=== PATIENT | female | born 1945 | race Two or more races ===

== ENCOUNTER 2024-05-29 02:09 | Inpatient (IN) | payer MEDICARE, MEDICAID ==
[2024-05-29] VITALS (23 sets, daily range): BP systolic 100–142; BP diastolic 46–66; PULSE 62–86; RESP 17–36; TEMP 96.4–97.9; O2SAT 96–100
[~2024-05-29] VITALS: Ht 162.6 cm; Wt 75.2 kg
[2024-05-29] MEDS: AMIODARONE BOLUS KIT 100 ML IV ONE ×2 (02:30→03:38)
[2024-05-29] MEDS: MIDAZOLAM DRIP 50 mg/50mL 50 ML IV SCH (02:30)
[2024-05-29] MEDS: AMIODARONE 450mg/250ml AE 250 ML IV ONE (02:34)
[2024-05-29] MEDS: AMIODARONE 450mg/250ml AE 250 ML IV SCH ×2 (02:39→08:30)
[2024-05-29] MEDS: NOREPINEPHRINE 8 MG/250ML KIT 250 ML IV ONE (02:44)
[2024-05-29] MEDS: NOREPINEPHRINE 8 MG/250ML KIT 250 ML IV SCH (02:45)
[2024-05-29] MEDS: EPINEPHrine HCL 250 ML IV SCH (02:50)
[2024-05-29 02:56] LABS: Lactic Acid w/Reflex 8.6 mmol/L (0.4-2.0)
[2024-05-29] MEDS: fentaNYL Drip 2500mCg/250mlNS 250 ML IV SCH (03:10)
[2024-05-29 03:18] LABS: Alanine Aminotransferase 31 U/L (7-40); Albumin 2.8 g/dL (3.2-4.8); Alkaline Phosphatase 93 U/L (46-116); Anion Gap 14 (5-15); Aspartate Aminotransferase 39 U/L (13-40); BUN/Creatinine Ratio 19.2 (10.0-20.0); Blood Urea Nitrogen 41 mg/dL (9-23); Calcium 8.5 mg/dL (8.7-10.4); Carbon Dioxide 16 mmol/L (20-30); Chloride 104 mmol/L (98-107); Glucose 219 mg/dL (74-106); Magnesium 1.9 mg/dL (1.6-2.6); Potassium 4.8 mmol/L (3.5-5.1); Sodium 134 mmol/L (136-145)
[2024-05-29 03:19] LABS: Bilirubin, Total 0.2 mg/dL (0.2-1.0); Total Protein 5.1 g/dL (5.7-8.2)
[2024-05-29 03:32] LABS: Basophils # (auto) 0.1 10 ^3/uL (0-0.2); Basophils % (auto) 0.6 % (0.0-2.0); Eosinophils # (auto) 0.3 10 ^3/uL (0-0.8); Eosinophils % (auto) 2.9 % (0.0-7.0); Hemoglobin 9.3 g/dL (12.2-16.2); Lymphocytes # (auto) 3.9 10 ^3/uL (0.4-5.4); Lymphocytes % (auto) 38.8 % (10.0-50.0); Mean Corpuscular Hemoglobin 29.1 pg (28.0-32.0); Mean Corpuscular Hgb Conc. 31.9 g/dL (32.0-36.0); Mean Corpuscular Volume 91.3 fL (80.0-100.0); Monocytes # (auto) 0.4 10 ^3/uL (0-1.3); Monocytes % (auto) 3.8 % (0.0-12.0); Neutrophils # (auto) 5.5 10 ^3/uL (1.6-8.6); Neutrophils % (auto) 53.9 % (37.0-80.0); Nucleated Red Blood Cells % 0.1 %; Red Blood Cells 3.18 10^6/uL (4.0-5.20); Red Cell Distribution Width 14.7 % (11.8-14.3); White Blood Cell 10.1 10^3/uL (4.4-10.8)
[2024-05-29 03:34] LABS: INR 1.16 (0.9-1.15); Partial Thromboplastin Time 36.6 SEC (24.5-34.5); Prothrombin Time 12.2 sec (9.3-11.8)
[2024-05-29] MEDS: MIDAZOLAM DRIP 50 mg/50mL 50 ML IV ONE (03:38)
[2024-05-29] MEDS: EPINEPHrine HCL 250 ML IV ONE (03:39)
[2024-05-29] MEDS: SODIUM BICARB 8.4% 50Meq/50ml SYR INJ ONE (03:39)
[2024-05-29] MEDS: fentaNYL Drip 2500mCg/250mlNS 250 ML IV ONE (03:39)
[2024-05-29 04:13] LABS: Base Excess -10.4 mmol/L (-2.0-2.0)
[2024-05-29] MEDS: cefTRIAXone 1GM/50ML D5W 50 ML IV ONE (04:37)
[2024-05-29] MEDS: AZITHROMYCIN 500MG/ 250ML 250 ML IV ONE (04:38)
[2024-05-29 04:45] LABS: Urine Amorphous Crystal FEW /hpf (None Seen); Urine Bacteria FEW /hpf (None Seen); Urine Blood 3+ /uL (Negative); Urine Clarity Clear (Clear); Urine Color Light-Yellow (Yellow); Urine Protein, UAD 2+ (Negative); Urine Specific Gravity 1.008 (1.001-1.035); Urine Urobilinogen Normal (Negative); Urine WBC 4 /hpf (0 - 5)
[2024-05-29] MEDS: PROPOFOL 100 ML IV ONE (07:22)
[2024-05-29] MEDS: PROPOFOL 100 ML IV SCH (07:30)
[2024-05-29 09:47] LABS: Base Excess -7.6 mmol/L (-2.0-2.0)
[2024-05-29] MEDS ORDERED: DEXTROSE (50%) 50ML SYRG IV PRN (10:45)
[2024-05-29] MEDS: CEFEPIME 2GM/50ML 50 ML IV SCH (10:45)
[2024-05-29] MEDS ORDERED: ONDANSETRON HCL 4 MG/2 ML VIAL IV PRN (10:45)
[2024-05-29] MEDS ORDERED: NITROGLYCERIN 0.4 MG SL TAB SL PRN (10:45)
[2024-05-29] MEDS ORDERED: VANCOMYCIN PER PHARMACY 0 MG IV SCH (10:45)
[2024-05-29] MEDS ORDERED: MORPHINE SULFATE INJ 2 MG/ml SYRG IV PRN (10:45)
[2024-05-29] MEDS: ENOXAPARIN SOD 30 MG/0.3 ML SYRINGE SC SCH (11:00)
[2024-05-29 11:25] LABS: Basophils # (auto) 0 10 ^3/uL (0-0.2); Basophils % (auto) 0.2 % (0.0-2.0); Eosinophils # (auto) 0.1 10 ^3/uL (0-0.8); Eosinophils % (auto) 2.5 % (0.0-7.0); Hematocrit 29.6 % (36.0-46.0); Hemoglobin 9.8 g/dL (12.2-16.2); Lymphocytes # (auto) 0.4 10 ^3/uL (0.4-5.4); Lymphocytes % (auto) 7.2 % (10.0-50.0); Mean Corpuscular Hemoglobin 29.1 pg (28.0-32.0); Mean Corpuscular Hgb Conc. 33.2 g/dL (32.0-36.0); Mean Corpuscular Volume 87.6 fL (80.0-100.0); Monocytes # (auto) 0.2 10 ^3/uL (0-1.3); Neutrophils # (auto) 4.5 10 ^3/uL (1.6-8.6); Neutrophils % (auto) 86.1 % (37.0-80.0); Red Blood Cells 3.38 10^6/uL (4.0-5.20); Red Cell Distribution Width 14.8 % (11.8-14.3); White Blood Cell 5.2 10^3/uL (4.4-10.8)
[2024-05-29] MEDS: InsuLIN REG 1unit/0.01ml Soln (100units/ml) SC SCH (12:00)
[2024-05-29] MEDS: ACCU-CHEK COMFORT CURVE STRIP VI SCH (12:01)
[2024-05-29 12:13] LABS: Alanine Aminotransferase 72 U/L (7-40); Albumin 2.6 g/dL (3.2-4.8); Alkaline Phosphatase 153 U/L (46-116); Anion Gap 7 (5-15); Aspartate Aminotransferase 91 U/L (13-40); BUN/Creatinine Ratio 18.7 (10.0-20.0); Blood Urea Nitrogen 41 mg/dL (9-23); Calcium 7.9 mg/dL (8.7-10.4); Carbon Dioxide 21 mmol/L (20-30); Chloride 108 mmol/L (98-107); Glucose 106 mg/dL (74-106); Potassium 3.8 mmol/L (3.5-5.1); Sodium 136 mmol/L (136-145)
[2024-05-29 12:14] LABS: Bilirubin, Total 0.2 mg/dL (0.2-1.0); Total Protein 4.8 g/dL (5.7-8.2)
[2024-05-29] MEDS ORDERED: SODIUM BICARB 8.4% 50Meq/50ml SYR INJ IV ONE (12:22)
[2024-05-29] MEDS ORDERED: EPINEPHrine HCL 1 MG/10 ML SYRG IV ONE (12:23)
[2024-05-29] MEDS: VANCOMYCIN 750mg/150ml 150 ML IV ONE (12:30)
[2024-05-29] MEDS: DOPamine 1600MCG/ML D5W 250 ML IV SCH (16:00)
[2024-05-29 16:40] LABS: Magnesium 1.6 mg/dL (1.6-2.6)
[2024-05-29 16:42] LABS: Phosphorus 5.3 mg/dL (2.4-5.1)
[2024-05-29] MEDS: HEPARIN DRIP/D5W 100UNITS/ML 250 ML IV SCH (17:15)
[2024-05-29] MEDS: ASPirin 325 MG TAB PO ONE (17:15)
[2024-05-29] MEDS: HEPARIN SODIUM (PORCINE) 5000 UNITS/ML 1ML VIAL IV ONE (18:56)
[2024-05-29] MEDS: CLOPIDOGREL BISULFATE 75 MG TAB PO ONE (18:57)
[2024-05-29] MEDS: DOBUTamine 1000MCG/ML 250 ML IV SCH (18:57)
[2024-05-29] MEDS: AMIODARONE HCL 200 MG TAB PO ONE (18:58)
[2024-05-29] MEDS: AMIODARONE HCL 200 MG TAB PO SCH (23:35)
[2024-05-30] VITALS (107 sets, daily range): BP systolic 89–149; BP diastolic 34–61; PULSE 22–117; RESP 17–22; TEMP 93.9–99; O2SAT 97–100
[2024-05-30 00:55] LABS: INR 1.41 (0.9-1.15); Prothrombin Time 14.6 sec (9.3-11.8)
[2024-05-30 01:02] LABS: Partial Thromboplastin Time > 139.0 SEC (24.5-34.5)
[2024-05-30] MEDS ORDERED: TRAM-626 PO (01:32)
[2024-05-30] MEDS ORDERED: BUDE1AER6 IN (01:32)
[2024-05-30] MEDS ORDERED: CLON0.2T PO (01:32)
[2024-05-30] MEDS ORDERED: SERT50TA PO (01:32)
[2024-05-30] MEDS ORDERED: CARV25TA55 PO (01:32)
[2024-05-30] MEDS ORDERED: SACU1TAB4 PO (01:32)
[2024-05-30 04:26] LABS: Basophils # (auto) 0 10 ^3/uL (0-0.2); Basophils % (auto) 0.3 % (0.0-2.0); Eosinophils # (auto) 0 10 ^3/uL (0-0.8); Eosinophils % (auto) 0.2 % (0.0-7.0); Hematocrit 28.6 % (36.0-46.0); Hemoglobin 9.5 g/dL (12.2-16.2); Lymphocytes # (auto) 0.7 10 ^3/uL (0.4-5.4); Lymphocytes % (auto) 5.1 % (10.0-50.0); Mean Corpuscular Hemoglobin 28.9 pg (28.0-32.0); Mean Corpuscular Hgb Conc. 33.2 g/dL (32.0-36.0); Mean Corpuscular Volume 87.2 fL (80.0-100.0); Monocytes # (auto) 0.7 10 ^3/uL (0-1.3); Monocytes % (auto) 5.1 % (0.0-12.0); Neutrophils # (auto) 12.9 10 ^3/uL (1.6-8.6); Neutrophils % (auto) 89.3 % (37.0-80.0); Red Blood Cells 3.28 10^6/uL (4.0-5.20); Red Cell Distribution Width 14.9 % (11.8-14.3); White Blood Cell 14.5 10^3/uL (4.4-10.8)
[2024-05-30 07:17] LABS: Base Excess -6.8 mmol/L (-2.0-2.0)
[2024-05-30 09:20] LABS: INR 1.29 (0.9-1.15); Partial Thromboplastin Time 64.9 SEC (24.5-34.5); Prothrombin Time 13.4 sec (9.3-11.8)
[2024-05-30 09:23] LABS: Alanine Aminotransferase 54 U/L (7-40); Albumin 2.7 g/dL (3.2-4.8); Alkaline Phosphatase 126 U/L (46-116); Anion Gap 11 (5-15); Aspartate Aminotransferase 73 U/L (13-40); BUN/Creatinine Ratio 20.6 (10.0-20.0); Bilirubin, Total 0.2 mg/dL (0.2-1.0); Blood Urea Nitrogen 50 mg/dL (9-23); Calcium 7.8 mg/dL (8.7-10.4); Carbon Dioxide 18 mmol/L (20-30); Chloride 106 mmol/L (98-107); Glucose 95 mg/dL (74-106); Potassium 4.5 mmol/L (3.5-5.1); Sodium 135 mmol/L (136-145)
[2024-05-30] MEDS: ASPirin 81 mg TAB PO SCH (09:51)
[2024-05-30] MEDS: CLOPIDOGREL BISULFATE 75 MG TAB PO SCH (09:51)
[2024-05-30] MEDS: VANCOMYCIN 1GM/200ML 200 ML IV ONE (11:58)
[2024-05-30] MEDS: VASOPRESSIN 20 UNITS in SODIUM CHL 0.9% 99 ML IV SCH (14:30)
[2024-05-30 15:09] LABS: Basophils # (auto) 0 10 ^3/uL (0-0.2); Basophils % (auto) 0.1 % (0.0-2.0); Eosinophils # (auto) 0 10 ^3/uL (0-0.8); Eosinophils % (auto) 0.2 % (0.0-7.0); Hematocrit 26.6 % (36.0-46.0); Hemoglobin 8.7 g/dL (12.2-16.2); Lymphocytes # (auto) 0.8 10 ^3/uL (0.4-5.4); Mean Corpuscular Hemoglobin 28.5 pg (28.0-32.0); Mean Corpuscular Hgb Conc. 32.9 g/dL (32.0-36.0); Mean Corpuscular Volume 86.8 fL (80.0-100.0); Monocytes # (auto) 0.8 10 ^3/uL (0-1.3); Monocytes % (auto) 4.7 % (0.0-12.0); Neutrophils # (auto) 14.4 10 ^3/uL (1.6-8.6); Nucleated Red Blood Cells % 0.1 %; Red Blood Cells 3.06 10^6/uL (4.0-5.20); Red Cell Distribution Width 14.9 % (11.8-14.3)
[2024-05-30 15:26] LABS: Creatinine, Urine 58.76 mg/dL (30.0-125.0)
[2024-05-30 15:29] LABS: Alanine Aminotransferase 46 U/L (7-40); Albumin 2.5 g/dL (3.2-4.8); Alkaline Phosphatase 119 U/L (46-116); Anion Gap 10 (5-15); Aspartate Aminotransferase 67 U/L (13-40); BUN/Creatinine Ratio 20.6 (10.0-20.0); Bilirubin, Total 0.2 mg/dL (0.2-1.0); Blood Urea Nitrogen 50 mg/dL (9-23); Calcium 7.3 mg/dL (8.7-10.4); Carbon Dioxide 17 mmol/L (20-30); Chloride 107 mmol/L (98-107); Glucose 98 mg/dL (74-106); Potassium 4.6 mmol/L (3.5-5.1); Sodium 134 mmol/L (136-145); Total Protein 4.6 g/dL (5.7-8.2)
[2024-05-30 15:40] LABS: INR 1.23 (0.9-1.15); Partial Thromboplastin Time 48.1 SEC (24.5-34.5); Prothrombin Time 12.8 sec (9.3-11.8)
[2024-05-30] MEDS: PANTOPRAZOLE 40 MG/10 ML VIAL INJ IV SCH (17:30)
[2024-05-31] VITALS (105 sets, daily range): BP systolic 85–148; BP diastolic 40–74; PULSE 71–134; RESP 19–32; TEMP 96.4–99.3; O2SAT 95–100
[2024-05-31 04:16] LABS: Basophils # (auto) 0 10 ^3/uL (0-0.2); Eosinophils # (auto) 0 10 ^3/uL (0-0.8); Hemoglobin 8.1 g/dL (12.2-16.2); Lymphocytes # (auto) 0.6 10 ^3/uL (0.4-5.4); Monocytes # (auto) 0.6 10 ^3/uL (0-1.3); Monocytes % (auto) 4.8 % (0.0-12.0); White Blood Cell 13.3 10^3/uL (4.4-10.8)
[2024-05-31 04:23] LABS: Basophils % (auto) 0.1 % (0.0-2.0); Hematocrit 24.3 % (36.0-46.0); Lymphocytes % (auto) 4.9 % (10.0-50.0); Mean Corpuscular Hemoglobin 29.1 pg (28.0-32.0); Mean Corpuscular Hgb Conc. 33.5 g/dL (32.0-36.0); Mean Corpuscular Volume 86.7 fL (80.0-100.0); Neutrophils % (auto) 90.2 % (37.0-80.0); Nucleated Red Blood Cells % 0.1 %; Red Cell Distribution Width 15.4 % (11.8-14.3)
[2024-05-31 04:28] LABS: Alanine Aminotransferase 37 U/L (7-40); Albumin 2.4 g/dL (3.2-4.8); Alkaline Phosphatase 113 U/L (46-116); Anion Gap 11 (5-15); Aspartate Aminotransferase 67 U/L (13-40); BUN/Creatinine Ratio 20.5 (10.0-20.0); Blood Urea Nitrogen 56 mg/dL (9-23); Calcium 7.5 mg/dL (8.7-10.4); Carbon Dioxide 17 mmol/L (20-30); Chloride 106 mmol/L (98-107); Glucose 95 mg/dL (74-106); Magnesium 1.6 mg/dL (1.6-2.6); Potassium 4.6 mmol/L (3.5-5.1); Sodium 134 mmol/L (136-145)
[2024-05-31 04:29] LABS: Bilirubin, Total 0.2 mg/dL (0.2-1.0); Total Protein 4.5 g/dL (5.7-8.2)
[2024-05-31 07:46] LABS: Base Excess -8.7 mmol/L (-2.0-2.0)
[2024-05-31] MEDS: BUMETANIDE 2.5mg/10ml (0.25 mg/ml) INJ IV SCH (11:49)
[2024-05-31] MEDS: MAGNESIUM SULFATE 1GM/100ML 100 ML IV ONE (12:15)
[2024-05-31] MEDS ORDERED: cefTRIAXone 1GM/50ML D5W 50 ML IV ONE (12:15)
[2024-05-31] MEDS: ALBUMIN 25% 50 ML IV SCH (13:32)
[2024-05-31] MEDS: AMIODARONE BOLUS KIT 100 ML IV ONE (21:36)
[2024-05-31] MEDS: AMIODARONE 450mg/250ml AE 250 ML IV SCH (22:18)
[2024-06-01] VITALS (97 sets, daily range): BP systolic 97–191; BP diastolic 45–78; PULSE 55–117; RESP 13–39; TEMP 96.3–99.5; O2SAT 94–100
[2024-06-01] MEDS: AMIODARONE 450mg/250ml AE 250 ML IV SCH (02:30)
[2024-06-01 04:06] LABS: Basophils # (auto) 0 10 ^3/uL (0-0.2); Basophils % (auto) 0.1 % (0.0-2.0); Eosinophils # (auto) 0 10 ^3/uL (0-0.8); Hematocrit 22.6 % (36.0-46.0); Hemoglobin 7.7 g/dL (12.2-16.2); Lymphocytes # (auto) 0.6 10 ^3/uL (0.4-5.4); Lymphocytes % (auto) 4.7 % (10.0-50.0); Mean Corpuscular Hemoglobin 29.5 pg (28.0-32.0); Mean Corpuscular Hgb Conc. 34.1 g/dL (32.0-36.0); Mean Corpuscular Volume 86.5 fL (80.0-100.0); Monocytes # (auto) 0.5 10 ^3/uL (0-1.3); Monocytes % (auto) 4.1 % (0.0-12.0); Neutrophils % (auto) 91.1 % (37.0-80.0); Red Blood Cells 2.61 10^6/uL (4.0-5.20); Red Cell Distribution Width 15.3 % (11.8-14.3); White Blood Cell 13.2 10^3/uL (4.4-10.8)
[2024-06-01 04:22] LABS: Alanine Aminotransferase 27 U/L (7-40); Albumin 2.7 g/dL (3.2-4.8); Alkaline Phosphatase 105 U/L (46-116); Anion Gap 11 (5-15); Aspartate Aminotransferase 75 U/L (13-40); BUN/Creatinine Ratio 20.5 (10.0-20.0); Bilirubin, Total 0.2 mg/dL (0.2-1.0); Blood Urea Nitrogen 65 mg/dL (9-23); Calcium 8.1 mg/dL (8.7-10.4); Carbon Dioxide 16 mmol/L (20-30); Chloride 106 mmol/L (98-107); Glucose 111 mg/dL (74-106); Magnesium 1.9 mg/dL (1.6-2.6); Potassium 4.2 mmol/L (3.5-5.1); Sodium 133 mmol/L (136-145); Total Protein 4.9 g/dL (5.7-8.2)
[2024-06-01 08:05] LABS: Base Excess -8.7 mmol/L (-2.0-2.0)
[2024-06-01] MEDS ORDERED: cefTRIAXone 1GM/50ML D5W 50 ML IV SCH (09:00)
[2024-06-01] MEDS: VANCOMYCIN 750mg/150ml 150 ML IV ONE (09:55)
[2024-06-01] MEDS: SODIUM BICARB 8.4% 50Meq/50ml SYR Vial IV ONE (14:27)
[2024-06-01] MEDS: ALBUMIN 25% 50 ML IV SCH (14:28)
[2024-06-01] MEDS: METOCLOPRAMIDE HCL 5MG/ml INJ 2ml VIAL IV SCH (14:29)
[2024-06-01] MEDS: AMIODARONE HCL 200 MG TAB PO ONE (14:29)
[2024-06-01] MEDS: SODIUM BICARB 50mEq/50ml Vial 150 ML in D5W 5% 1,000 ML IV ONE (15:05)
[2024-06-01] MEDS: PANTOPRAZOLE 40 MG/10 ML VIAL INJ IV SCH (21:59)
[2024-06-01] MEDS: AMIODARONE HCL 200 MG TAB PO SCH (22:01)
[2024-06-02] VITALS (107 sets, daily range): BP systolic 102–186; BP diastolic 44–75; PULSE 60–129; RESP 12–22; TEMP 92.7–99.3; O2SAT 91–99
[2024-06-02] MEDS: hydrALAZINE HCL 20 MG/ML VL IV PRN (00:27)
[2024-06-02] MEDS: Jevity 1.2 Cal/Fiber 1 Liter GT SCH (03:56)
[2024-06-02 04:04] LABS: Base Excess -4.5 mmol/L (-2.0-2.0)
[2024-06-02 04:21] LABS: Basophils # (auto) 0 10 ^3/uL (0-0.2); Basophils % (auto) 0.1 % (0.0-2.0); Eosinophils # (auto) 0 10 ^3/uL (0-0.8); Eosinophils % (auto) 0.6 % (0.0-7.0); Hemoglobin 9.8 g/dL (12.2-16.2); Lymphocytes # (auto) 0.6 10 ^3/uL (0.4-5.4); Lymphocytes % (auto) 7.9 % (10.0-50.0); Mean Corpuscular Hemoglobin 29.7 pg (28.0-32.0); Mean Corpuscular Hgb Conc. 33.8 g/dL (32.0-36.0); Mean Corpuscular Volume 87.8 fL (80.0-100.0); Monocytes # (auto) 0.6 10 ^3/uL (0-1.3); Monocytes % (auto) 7.6 % (0.0-12.0); Neutrophils # (auto) 6.8 10 ^3/uL (1.6-8.6); Neutrophils % (auto) 83.8 % (37.0-80.0); Nucleated Red Blood Cells % 0.1 %; Red Blood Cells 3.31 10^6/uL (4.0-5.20); Red Cell Distribution Width 15.5 % (11.8-14.3); White Blood Cell 8.2 10^3/uL (4.4-10.8)
[2024-06-02 04:40] LABS: Anion Gap 13 (5-15); Carbon Dioxide 15 mmol/L (20-30); Chloride 107 mmol/L (98-107); Potassium 3.4 mmol/L (3.5-5.1); Sodium 135 mmol/L (136-145)
[2024-06-02 04:41] LABS: Calcium 8.3 mg/dL (8.7-10.4)
[2024-06-02 04:46] LABS: BUN/Creatinine Ratio 20.6 (10.0-20.0); Blood Urea Nitrogen 65 mg/dL (9-23); Glucose 80 mg/dL (74-106)
[2024-06-02] MEDS: POTASSIUM CHL 20MEQ/100ML 100 ML IV ONE (09:25)
[2024-06-02 10:21] LABS: Triglycerides 205 mg/dL (< 150)
[2024-06-02 10:22] LABS: LDL Cholesterol 69 mg/dL (< 100)
[2024-06-02 10:23] LABS: Cholesterol 123 mg/dL (< 200); HDL Cholesterol 13 mg/dL (40-59)
[2024-06-02] MEDS: LIDOCAINE 1% (LOCAL ANESTH.) PF 5ml SDV ID ONE (16:15)
[2024-06-02] MEDS: FUROSEMIDE 40 MG/4 ML VIAL IV SCH (17:58)
[2024-06-02] MEDS: SODIUM CHLOR 0.9% PF (SALINE LOCK) 10ML VIAL/SYR IV SCH (21:33)
[2024-06-02] MEDS: AMIODARONE BOLUS KIT 100 ML IV ONE (23:24)
[2024-06-02] MEDS: AMIODARONE 450mg/250ml AE 250 ML IV SCH (23:35)
[2024-06-03] VITALS (109 sets, daily range): BP systolic 76–184; BP diastolic 28–112; PULSE 86–136; RESP 14–57; TEMP 97.3–99.3; O2SAT 93–100
[2024-06-03 03:57] LABS: Basophils # (auto) 0 10 ^3/uL (0-0.2); Basophils % (auto) 0.6 % (0.0-2.0); Chloride 106 mmol/L (98-107); Eosinophils # (auto) 0.2 10 ^3/uL (0-0.8); Eosinophils % (auto) 2.4 % (0.0-7.0); Hematocrit 31.7 % (36.0-46.0); Hemoglobin 11.1 g/dL (12.2-16.2); Lymphocytes # (auto) 0.7 10 ^3/uL (0.4-5.4); Lymphocytes % (auto) 9.5 % (10.0-50.0); Mean Corpuscular Hemoglobin 30.6 pg (28.0-32.0); Mean Corpuscular Volume 87.5 fL (80.0-100.0); Monocytes # (auto) 0.9 10 ^3/uL (0-1.3); Monocytes % (auto) 11.1 % (0.0-12.0); Neutrophils % (auto) 76.4 % (37.0-80.0); Potassium 3.4 mmol/L (3.5-5.1); Red Blood Cells 3.62 10^6/uL (4.0-5.20); Red Cell Distribution Width 15.2 % (11.8-14.3); Sodium 138 mmol/L (136-145); White Blood Cell 7.9 10^3/uL (4.4-10.8)
[2024-06-03 03:58] LABS: Anion Gap 13 (5-15); Carbon Dioxide 19 mmol/L (20-30)
[2024-06-03 03:59] LABS: Calcium 8.9 mg/dL (8.7-10.4)
[2024-06-03 04:04] LABS: BUN/Creatinine Ratio 20.1 (10.0-20.0); Blood Urea Nitrogen 62 mg/dL (9-23); Glucose 95 mg/dL (74-106)
[2024-06-03] MEDS: AMIODARONE 450mg/250ml AE 250 ML IV SCH ×2 (05:27→18:10)
[2024-06-03 07:03] LABS: Base Excess -3.9 mmol/L (-2.0-2.0)
[2024-06-03] MEDS: POTASSIUM CHL 20MEQ/100ML 100 ML IV ONE (08:06)
[2024-06-03 19:51] LABS: Potassium 3.2 mmol/L (3.5-5.1)
[2024-06-03 19:53] LABS: Calcium 7.9 mg/dL (8.5-10.1)
[2024-06-03 19:58] LABS: Magnesium 1.5 mg/dL (1.6-2.6)
[2024-06-03 20:22] LABS: Phosphorus 3.9 mg/dL (2.4-5.1)
[2024-06-04] VITALS (108 sets, daily range): BP systolic 81–156; BP diastolic 42–81; PULSE 61–98; RESP 16–23; TEMP 92.5–98.1; O2SAT 97–100
[2024-06-04 04:04] LABS: Basophils # (auto) 0 10 ^3/uL (0-0.2); Basophils % (auto) 0.3 % (0.0-2.0); Eosinophils # (auto) 0.4 10 ^3/uL (0-0.8); Eosinophils % (auto) 5.4 % (0.0-7.0); Hemoglobin 11.3 g/dL (12.2-16.2); Lymphocytes # (auto) 0.8 10 ^3/uL (0.4-5.4); Lymphocytes % (auto) 10.7 % (10.0-50.0); Mean Corpuscular Hemoglobin 30.1 pg (28.0-32.0); Mean Corpuscular Hgb Conc. 34.3 g/dL (32.0-36.0); Mean Corpuscular Volume 87.6 fL (80.0-100.0); Monocytes # (auto) 0.8 10 ^3/uL (0-1.3); Monocytes % (auto) 11.3 % (0.0-12.0); Neutrophils # (auto) 5.2 10 ^3/uL (1.6-8.6); Neutrophils % (auto) 72.3 % (37.0-80.0); Red Blood Cells 3.77 10^6/uL (4.0-5.20); Red Cell Distribution Width 15.1 % (11.8-14.3); White Blood Cell 7.3 10^3/uL (4.4-10.8)
[2024-06-04 04:22] LABS: Alanine Aminotransferase 12 U/L (7-40); Albumin 2.6 g/dL (3.2-4.8); Alkaline Phosphatase 92 U/L (46-116); Anion Gap 12 (5-15); Aspartate Aminotransferase 43 U/L (13-40); BUN/Creatinine Ratio 21.1 (10.0-20.0); Bilirubin, Total 0.5 mg/dL (0.2-1.0); Blood Urea Nitrogen 57 mg/dL (9-23); Calcium 8.8 mg/dL (8.5-10.1); Carbon Dioxide 18 mmol/L (20-30); Chloride 107 mmol/L (98-107); Glucose 121 mg/dL (74-106); Potassium 3.4 mmol/L (3.5-5.1); Sodium 137 mmol/L (136-145); Total Protein 4.6 g/dL (5.7-8.2)
[2024-06-04 08:15] LABS: Base Excess -5.2 mmol/L (-2.0-2.0)
[2024-06-04] MEDS: POTASSIUM EFFERVESENT TAB 25 MEQ GT ONE (17:57)
[2024-06-04] MEDS: NOREPINEPHRINE 8 MG/250ML KIT 250 ML IV SCH (17:58)
[2024-06-04] MEDS: AMIODARONE 450mg/250ml AE 250 ML IV ONE (19:31)
[2024-06-04] MEDS: AMIODARONE 450mg/250ml AE 250 ML IV SCH (19:37)
[2024-06-05] VITALS (112 sets, daily range): BP systolic 99–194; BP diastolic 41–89; PULSE 66–94; RESP 18–24; TEMP 95.4–98.6; O2SAT 93–100
[2024-06-05 03:55] LABS: Basophils # (auto) 0 10 ^3/uL (0-0.2); Basophils % (auto) 0.4 % (0.0-2.0); Chloride 101 mmol/L (98-107); Eosinophils # (auto) 0.6 10 ^3/uL (0-0.8); Eosinophils % (auto) 7.3 % (0.0-7.0); Hematocrit 27.5 % (36.0-46.0); Hemoglobin 9.5 g/dL (12.2-16.2); Lymphocytes % (auto) 12.6 % (10.0-50.0); Mean Corpuscular Hemoglobin 31.2 pg (28.0-32.0); Mean Corpuscular Hgb Conc. 34.5 g/dL (32.0-36.0); Mean Corpuscular Volume 90.5 fL (80.0-100.0); Monocytes # (auto) 0.5 10 ^3/uL (0-1.3); Neutrophils # (auto) 5.9 10 ^3/uL (1.6-8.6); Neutrophils % (auto) 73.7 % (37.0-80.0); Nucleated Red Blood Cells % 0.3 %; Potassium 3.5 mmol/L (3.5-5.1); Red Blood Cells 3.04 10^6/uL (4.0-5.20); Red Cell Distribution Width 15.6 % (11.8-14.3)
[2024-06-05 03:56] LABS: Anion Gap 9 (5-15); Carbon Dioxide 18 mmol/L (20-30)
[2024-06-05 04:01] LABS: BUN/Creatinine Ratio 21.4 (10.0-20.0); Blood Urea Nitrogen 57 mg/dL (9-23); Glucose 340 mg/dL (74-106)
[2024-06-05 04:02] LABS: Magnesium 1.5 mg/dL (1.6-2.6)
[2024-06-05 04:11] LABS: Sodium 128 mmol/L (136-145)
[2024-06-05 05:30] LABS: Platelet Estimate Adequate
[2024-06-05 09:25] LABS: Base Excess -4.5 mmol/L (-2.0-2.0)
[2024-06-05] MEDS ORDERED: DEXTROSE (50%) 50ML SYRG IV PRN (18:15)
[2024-06-05] MEDS: InsuLIN REG 1unit/0.01ml Soln (100units/ml) SC SCH (23:56)
[2024-06-05] MEDS: ACCU-CHEK COMFORT CURVE STRIP VI SCH (23:56)
[2024-06-06] VITALS (109 sets, daily range): BP systolic 100–215; BP diastolic 42–129; PULSE 71–96; RESP 14–23; TEMP 94.6–99.3; O2SAT 97–100
[2024-06-06 03:58] LABS: Basophils # (auto) 0 10 ^3/uL (0-0.2); Basophils % (auto) 0.3 % (0.0-2.0); Eosinophils # (auto) 0.4 10 ^3/uL (0-0.8); Hematocrit 31.2 % (36.0-46.0); Hemoglobin 10.7 g/dL (12.2-16.2); Lymphocytes # (auto) 0.7 10 ^3/uL (0.4-5.4); Lymphocytes % (auto) 8.4 % (10.0-50.0); Mean Corpuscular Hemoglobin 30.2 pg (28.0-32.0); Mean Corpuscular Hgb Conc. 34.3 g/dL (32.0-36.0); Mean Corpuscular Volume 87.9 fL (80.0-100.0); Monocytes # (auto) 0.6 10 ^3/uL (0-1.3); Monocytes % (auto) 7.8 % (0.0-12.0); Neutrophils # (auto) 6.5 10 ^3/uL (1.6-8.6); Neutrophils % (auto) 78.5 % (37.0-80.0); Red Blood Cells 3.54 10^6/uL (4.0-5.20); Red Cell Distribution Width 15.8 % (11.8-14.3); White Blood Cell 8.3 10^3/uL (4.4-10.8)
[2024-06-06 04:06] LABS: Anion Gap 10 (5-15); Carbon Dioxide 20 mmol/L (20-30); Chloride 106 mmol/L (98-107); Potassium 3.6 mmol/L (3.5-5.1); Sodium 136 mmol/L (136-145)
[2024-06-06 04:07] LABS: Calcium 9.2 mg/dL (8.7-10.4)
[2024-06-06 04:12] LABS: BUN/Creatinine Ratio 22.3 (10.0-20.0); Blood Urea Nitrogen 64 mg/dL (9-23); Glucose 96 mg/dL (74-106)
[2024-06-06] MEDS: PROPOFOL 100 ML IV SCH (05:56)
[2024-06-06 08:08] LABS: Base Excess -5.1 mmol/L (-2.0-2.0)
[2024-06-07] VITALS (108 sets, daily range): BP systolic 100–176; BP diastolic 45–71; PULSE 70–101; RESP 13–27; TEMP 96.3–99; O2SAT 95–100
[2024-06-07 04:00] LABS: Basophils # (auto) 0 10 ^3/uL (0-0.2); Basophils % (auto) 0.1 % (0.0-2.0); Eosinophils # (auto) 0.6 10 ^3/uL (0-0.8); Eosinophils % (auto) 4.4 % (0.0-7.0); Hematocrit 31.4 % (36.0-46.0); Hemoglobin 10.5 g/dL (12.2-16.2); Lymphocytes # (auto) 1.2 10 ^3/uL (0.4-5.4); Lymphocytes % (auto) 8.9 % (10.0-50.0); Mean Corpuscular Hemoglobin 29.3 pg (28.0-32.0); Mean Corpuscular Hgb Conc. 33.6 g/dL (32.0-36.0); Mean Corpuscular Volume 87.2 fL (80.0-100.0); Monocytes # (auto) 0.6 10 ^3/uL (0-1.3); Monocytes % (auto) 4.4 % (0.0-12.0); Neutrophils # (auto) 10.8 10 ^3/uL (1.6-8.6); Neutrophils % (auto) 82.2 % (37.0-80.0); Nucleated Red Blood Cells % 0.1 %; Red Blood Cells 3.61 10^6/uL (4.0-5.20); Red Cell Distribution Width 15.8 % (11.8-14.3); White Blood Cell 13.1 10^3/uL (4.4-10.8)
[2024-06-07 04:11] LABS: Chloride 106 mmol/L (98-107); Potassium 3.6 mmol/L (3.5-5.1); Sodium 136 mmol/L (136-145)
[2024-06-07 04:12] LABS: Anion Gap 10 (5-15); Carbon Dioxide 20 mmol/L (20-30)
[2024-06-07 04:13] LABS: Calcium 9.5 mg/dL (8.7-10.4)
[2024-06-07 04:17] LABS: Glucose 116 mg/dL (74-106)
[2024-06-07 04:18] LABS: BUN/Creatinine Ratio 24.1 (10.0-20.0); Blood Urea Nitrogen 69 mg/dL (9-23); Magnesium 1.7 mg/dL (1.6-2.6)
[2024-06-07] MEDS: fentaNYL Drip 2500mCg/250mlNS 250 ML IV SCH (06:45)
[2024-06-07 07:35] LABS: Base Excess -4.1 mmol/L (-2.0-2.0)
[2024-06-07] MEDS: amLODIPine BESYLATE 5 MG TAB PO SCH (09:21)
[2024-06-08] VITALS (107 sets, daily range): BP systolic 98–201; BP diastolic 44–92; PULSE 72–117; RESP 18–30; TEMP 96.6–99.1; O2SAT 98–100
[2024-06-08 04:08] LABS: Chloride 107 mmol/L (98-107); Potassium 3.7 mmol/L (3.5-5.1); Sodium 136 mmol/L (136-145)
[2024-06-08 04:09] LABS: Anion Gap 10 (5-15); Calcium 9.4 mg/dL (8.7-10.4); Carbon Dioxide 19 mmol/L (20-30)
[2024-06-08 04:12] LABS: Basophils # (auto) 0 10 ^3/uL (0-0.2); Basophils % (auto) 0.4 % (0.0-2.0); Eosinophils # (auto) 0.6 10 ^3/uL (0-0.8); Eosinophils % (auto) 4.7 % (0.0-7.0); Hematocrit 30.4 % (36.0-46.0); Hemoglobin 9.9 g/dL (12.2-16.2); Lymphocytes # (auto) 0.8 10 ^3/uL (0.4-5.4); Lymphocytes % (auto) 7.1 % (10.0-50.0); Mean Corpuscular Hemoglobin 28.7 pg (28.0-32.0); Mean Corpuscular Hgb Conc. 32.5 g/dL (32.0-36.0); Mean Corpuscular Volume 88.4 fL (80.0-100.0); Monocytes # (auto) 1.1 10 ^3/uL (0-1.3); Monocytes % (auto) 9.7 % (0.0-12.0); Neutrophils # (auto) 9.2 10 ^3/uL (1.6-8.6); Neutrophils % (auto) 78.1 % (37.0-80.0); Red Blood Cells 3.44 10^6/uL (4.0-5.20); Red Cell Distribution Width 15.9 % (11.8-14.3); White Blood Cell 11.8 10^3/uL (4.4-10.8)
[2024-06-08 04:14] LABS: BUN/Creatinine Ratio 22.5 (10.0-20.0); Blood Urea Nitrogen 66 mg/dL (9-23); Glucose 107 mg/dL (74-106)
[2024-06-08 06:42] LABS: Base Excess -6.5 mmol/L (-2.0-2.0)
[2024-06-08] MEDS: FUROSEMIDE 40 MG/4 ML VIAL IV SCH (22:42)
[2024-06-09] VITALS (108 sets, daily range): BP systolic 105–152; BP diastolic 44–80; PULSE 79–105; RESP 22–30; TEMP 97.2–99.1; O2SAT 98–100
[2024-06-09 04:05] LABS: Basophils # (auto) 0.1 10 ^3/uL (0-0.2); Basophils % (auto) 0.4 % (0.0-2.0); Eosinophils # (auto) 0.4 10 ^3/uL (0-0.8); Eosinophils % (auto) 3.3 % (0.0-7.0); Hematocrit 32.3 % (36.0-46.0); Hemoglobin 10.8 g/dL (12.2-16.2); Lymphocytes # (auto) 0.8 10 ^3/uL (0.4-5.4); Mean Corpuscular Hemoglobin 29.6 pg (28.0-32.0); Mean Corpuscular Hgb Conc. 33.4 g/dL (32.0-36.0); Mean Corpuscular Volume 88.5 fL (80.0-100.0); Monocytes # (auto) 1.4 10 ^3/uL (0-1.3); Monocytes % (auto) 10.8 % (0.0-12.0); Neutrophils # (auto) 10.2 10 ^3/uL (1.6-8.6); Neutrophils % (auto) 79.5 % (37.0-80.0); Red Blood Cells 3.65 10^6/uL (4.0-5.20); White Blood Cell 12.8 10^3/uL (4.4-10.8)
[2024-06-09 04:26] LABS: Alanine Aminotransferase 12 U/L (7-40); Albumin 2.7 g/dL (3.2-4.8); Alkaline Phosphatase 126 U/L (46-116); Anion Gap 12 (5-15); Aspartate Aminotransferase 36 U/L (13-40); BUN/Creatinine Ratio 21.4 (10.0-20.0); Bilirubin, Total 0.3 mg/dL (0.2-1.0); Blood Urea Nitrogen 74 mg/dL (9-23); Calcium 9.9 mg/dL (8.7-10.4); Carbon Dioxide 17 mmol/L (20-30); Chloride 105 mmol/L (98-107); Glucose 112 mg/dL (74-106); Potassium 3.9 mmol/L (3.5-5.1); Sodium 134 mmol/L (136-145); Total Protein 5.3 g/dL (5.7-8.2)
[2024-06-09 07:21] LABS: Base Excess -4.8 mmol/L (-2.0-2.0)
[2024-06-10] VITALS (107 sets, daily range): BP systolic 105–164; BP diastolic 45–73; PULSE 76–93; RESP 20–30; TEMP 96.4–99.1; O2SAT 98–100
[2024-06-10 08:08] LABS: Base Excess -7.1 mmol/L (-2.0-2.0)
[2024-06-11] VITALS (106 sets, daily range): BP systolic 100–173; BP diastolic 48–72; PULSE 62–111; RESP 14–30; TEMP 92.8–98.4; O2SAT 94–100
[2024-06-11 04:11] LABS: Basophils # (auto) 0.1 10 ^3/uL (0-0.2); Basophils % (auto) 0.7 % (0.0-2.0); Eosinophils # (auto) 0.2 10 ^3/uL (0-0.8); Eosinophils % (auto) 2.5 % (0.0-7.0); Hematocrit 31.4 % (36.0-46.0); Hemoglobin 10.4 g/dL (12.2-16.2); Lymphocytes # (auto) 0.6 10 ^3/uL (0.4-5.4); Lymphocytes % (auto) 6.4 % (10.0-50.0); Mean Corpuscular Hemoglobin 29.4 pg (28.0-32.0); Mean Corpuscular Hgb Conc. 33.2 g/dL (32.0-36.0); Mean Corpuscular Volume 88.4 fL (80.0-100.0); Monocytes # (auto) 1.2 10 ^3/uL (0-1.3); Neutrophils # (auto) 7.6 10 ^3/uL (1.6-8.6); Neutrophils % (auto) 78.4 % (37.0-80.0); Nucleated Red Blood Cells % 0.1 %; Red Blood Cells 3.55 10^6/uL (4.0-5.20); Red Cell Distribution Width 15.6 % (11.8-14.3); White Blood Cell 9.8 10^3/uL (4.4-10.8)
[2024-06-11 04:12] LABS: Alanine Aminotransferase 12 U/L (7-40); Albumin 2.7 g/dL (3.2-4.8); Alkaline Phosphatase 132 U/L (46-116); Anion Gap 14 (5-15); Aspartate Aminotransferase 42 U/L (13-40); BUN/Creatinine Ratio 22.2 (10.0-20.0); Calcium 9.3 mg/dL (8.7-10.4); Carbon Dioxide 16 mmol/L (20-30); Chloride 102 mmol/L (98-107); Glucose 95 mg/dL (74-106); Potassium 3.9 mmol/L (3.5-5.1); Sodium 132 mmol/L (136-145)
[2024-06-11 04:13] LABS: Bilirubin, Total 0.3 mg/dL (0.2-1.0); Total Protein 5.5 g/dL (5.7-8.2)
[2024-06-11 04:24] LABS: Blood Urea Nitrogen 87 mg/dL (9-23)
[2024-06-11 10:11] LABS: Base Excess -7.3 mmol/L (-2.0-2.0)
[2024-06-11] MEDS: FLUCONAZOLE 200MG/100ML 100 ML IV ONE (15:50)
[2024-06-12] VITALS (104 sets, daily range): BP systolic 93–161; BP diastolic 37–66; PULSE 58–90; RESP 16–28; TEMP 90.3–99.1; O2SAT 90–100
[2024-06-12] MEDS: FUROSEMIDE 100 MG/10ML VIAL IV SCH (09:44)
[2024-06-12] MEDS: FLUCONAZOLE 200MG/100ML 100 ML IV SCH (10:13)
[2024-06-12 10:28] LABS: Basophils # (auto) 0 10 ^3/uL (0-0.2); Basophils % (auto) 0.4 % (0.0-2.0); Eosinophils # (auto) 0.2 10 ^3/uL (0-0.8); Eosinophils % (auto) 2.9 % (0.0-7.0); Hematocrit 31.1 % (36.0-46.0); Hemoglobin 10.5 g/dL (12.2-16.2); Lymphocytes # (auto) 0.6 10 ^3/uL (0.4-5.4); Lymphocytes % (auto) 7.2 % (10.0-50.0); Mean Corpuscular Hemoglobin 30.6 pg (28.0-32.0); Mean Corpuscular Hgb Conc. 33.6 g/dL (32.0-36.0); Monocytes # (auto) 0.9 10 ^3/uL (0-1.3); Monocytes % (auto) 10.4 % (0.0-12.0); Neutrophils # (auto) 6.8 10 ^3/uL (1.6-8.6); Neutrophils % (auto) 79.1 % (37.0-80.0); Nucleated Red Blood Cells % 0.1 %; Red Blood Cells 3.42 10^6/uL (4.0-5.20); Red Cell Distribution Width 15.9 % (11.8-14.3); White Blood Cell 8.6 10^3/uL (4.4-10.8)
[2024-06-12 10:31] LABS: Chloride 103 mmol/L (98-107); Potassium 4.1 mmol/L (3.5-5.1); Sodium 130 mmol/L (136-145)
[2024-06-12 10:32] LABS: Anion Gap 14 (5-15); Calcium 8.8 mg/dL (8.7-10.4); Carbon Dioxide 13 mmol/L (20-30)
[2024-06-12 10:37] LABS: BUN/Creatinine Ratio 15.9 (10.0-20.0); Glucose 91 mg/dL (74-106)
[2024-06-12 10:39] LABS: Blood Urea Nitrogen 66 mg/dL (9-23)
[2024-06-13] VITALS (112 sets, daily range): BP systolic 112–169; BP diastolic 50–96; PULSE 82–116; RESP 12–38; TEMP 97.2–98.6; O2SAT 90–100
[2024-06-13 03:47] LABS: Basophils # (auto) 0 10 ^3/uL (0-0.2); Basophils % (auto) 0.3 % (0.0-2.0); Eosinophils # (auto) 0.1 10 ^3/uL (0-0.8); Eosinophils % (auto) 1.2 % (0.0-7.0); Hematocrit 30.2 % (36.0-46.0); Hemoglobin 10.2 g/dL (12.2-16.2); Lymphocytes # (auto) 0.5 10 ^3/uL (0.4-5.4); Mean Corpuscular Hemoglobin 29.4 pg (28.0-32.0); Mean Corpuscular Hgb Conc. 33.9 g/dL (32.0-36.0); Mean Corpuscular Volume 86.8 fL (80.0-100.0); Monocytes # (auto) 0.9 10 ^3/uL (0-1.3); Monocytes % (auto) 8.8 % (0.0-12.0); Neutrophils # (auto) 8.8 10 ^3/uL (1.6-8.6); Neutrophils % (auto) 84.7 % (37.0-80.0); Nucleated Red Blood Cells % 0.1 %; Red Blood Cells 3.48 10^6/uL (4.0-5.20); Red Cell Distribution Width 15.7 % (11.8-14.3); White Blood Cell 10.4 10^3/uL (4.4-10.8)
[2024-06-13 04:01] LABS: Anion Gap 18 (5-15); Carbon Dioxide 12 mmol/L (20-30); Chloride 98 mmol/L (98-107); Potassium 3.5 mmol/L (3.5-5.1); Sodium 128 mmol/L (136-145)
[2024-06-13 04:02] LABS: Calcium 8.8 mg/dL (8.7-10.4)
[2024-06-13 04:07] LABS: Glucose 168 mg/dL (74-106)
[2024-06-13 04:12] LABS: Blood Urea Nitrogen 91 mg/dL (9-23)
[2024-06-13 07:24] LABS: Base Excess -9.7 mmol/L (-2.0-2.0)
[2024-06-13] MEDS ORDERED: TPN PER PHARMACY 0 ML IV SCH (10:00)
[2024-06-13] MEDS ORDERED: diphenhdrAMINE HCL 50 MG/1 ML VL IV PRN (10:00)
[2024-06-13] MEDS ORDERED: DEXTROSE (50%) 50ML SYRG IV SCH (10:30)
[2024-06-13] MEDS: methylPREDNISolone SOD SUCC 125 MG/2 ML VL IV SCH (10:32)
[2024-06-13] MEDS: ENOXAPARIN SOD 30 MG/0.3 ML SYRINGE SC SCH (10:32)
[2024-06-13] MEDS: FAMOTIDINE (10MG/ML) 2ML VL IV SCH (10:34)
[2024-06-13 10:51] LABS: Albumin 2.8 g/dL (3.2-4.8); Bilirubin, Direct 0.2 mg/dL (<0.3); Bilirubin, Total 0.3 mg/dL (0.2-1.0); Phosphorus 11.3 mg/dL (2.4-5.1); Total Protein 5.4 g/dL (5.7-8.2)
[2024-06-13] MEDS: ACCU-CHEK COMFORT CURVE STRIP VI SCH (11:35)
[2024-06-13] MEDS: InsuLIN REG 1unit/0.01ml Soln (100units/ml) SC SCH (11:36)
[2024-06-13] MEDS ORDERED: TPN PER PHARMACY IV NR (20:00)
[2024-06-13] MEDS: TPN PER PHARMACY IV NR (20:49)
[2024-06-14] VITALS (111 sets, daily range): BP systolic 98–188; BP diastolic 48–92; PULSE 62–123; RESP 14–37; TEMP 95.9–98.6; O2SAT 94–99
[2024-06-14 04:37] LABS: Alanine Aminotransferase 10 U/L (7-40); Alkaline Phosphatase 135 U/L (46-116); Anion Gap 19.00001 (5-15); Calcium 8.8 mg/dL (8.7-10.4); Chloride 95 mmol/L (98-107); Potassium 4.4 mmol/L (3.5-5.1); Sodium 124 mmol/L (136-145)
[2024-06-14 04:38] LABS: Magnesium 2.5 mg/dL (1.6-2.6)
[2024-06-14 04:39] LABS: Albumin 2.7 g/dL (3.2-4.8); Aspartate Aminotransferase 40 U/L (13-40); Bilirubin, Total 0.3 mg/dL (0.2-1.0); Phosphorus 10.6 mg/dL (2.4-5.1); Total Protein 5.5 g/dL (5.7-8.2)
[2024-06-14 04:45] LABS: Carbon Dioxide < 10 mmol/L (20-30)
[2024-06-14 04:46] LABS: Blood Urea Nitrogen 93 mg/dL (9-23)
[2024-06-14 04:47] LABS: Glucose 926 mg/dL (74-106)
[2024-06-14 06:29] LABS: Alanine Aminotransferase 11 U/L (7-40); Albumin 2.8 g/dL (3.2-4.8); Alkaline Phosphatase 131 U/L (46-116); Anion Gap 18 (5-15); Aspartate Aminotransferase 39 U/L (13-40); BUN/Creatinine Ratio 22.9 (10.0-20.0); Bilirubin, Total 0.3 mg/dL (0.2-1.0); Calcium 9.1 mg/dL (8.7-10.4); Carbon Dioxide 11 mmol/L (20-30); Chloride 101 mmol/L (98-107); Glucose 195 mg/dL (74-106); Potassium 3.6 mmol/L (3.5-5.1); Total Protein 5.4 g/dL (5.7-8.2)
[2024-06-14 06:43] LABS: Blood Urea Nitrogen 110 mg/dL (9-23); Sodium 130 mmol/L (136-145)
[2024-06-14 07:18] LABS: Base Excess -10.6 mmol/L (-2.0-2.0)
[2024-06-14] MEDS: methylPREDNISolone SOD SUCC 125 MG/2 ML VL IV SCH (10:00)
[2024-06-14] MEDS: SODIUM BICARB 50mEq/50ml Vial 50 ML in D5W 5% 1,000 ML IV ONE (10:06)
[2024-06-14] MEDS: PROPOFOL 100 ML IV SCH (11:31)
[2024-06-14] MEDS: PROPOFOL 100 ML IV ONE (11:35)
[2024-06-14] MEDS: TPN PER PHARMACY IV NR (19:59)
[2024-06-15] VITALS (105 sets, daily range): BP systolic 51–151; BP diastolic 32–78; PULSE 49–85; RESP 10–26; TEMP 96.7–98; O2SAT 95–100
[2024-06-15 04:25] LABS: Albumin 2.5 g/dL (3.2-4.8); Alkaline Phosphatase 108 U/L (46-116); Anion Gap 17 (5-15); Aspartate Aminotransferase 34 U/L (13-40); BUN/Creatinine Ratio 22.4 (10.0-20.0); Bilirubin, Total 0.2 mg/dL (0.2-1.0); Calcium 8.6 mg/dL (8.7-10.4); Carbon Dioxide 12 mmol/L (20-30); Chloride 99 mmol/L (98-107); Glucose 196 mg/dL (74-106); Magnesium 1.8 mg/dL (1.6-2.6); Phosphorus 9.6 mg/dL (2.4-5.1); Potassium 3.1 mmol/L (3.5-5.1); Sodium 128 mmol/L (136-145); Total Protein 4.7 g/dL (5.7-8.2)
[2024-06-15 04:27] LABS: Alanine Aminotransferase < 9 U/L (7-40)
[2024-06-15 04:28] LABS: Blood Urea Nitrogen 110 mg/dL (9-23)
[2024-06-15 07:45] LABS: Base Excess -13.7 mmol/L (-2.0-2.0)
[2024-06-15] MEDS: POTASSIUM CHL 20MEQ/100ML 100 ML IV ONE (09:26)
[2024-06-15] MEDS: TPN PER PHARMACY IV NR (20:35)
[2024-06-15] MEDS: FUROSEMIDE 100 MG/10ML VIAL IV SCH (23:15)
[2024-06-16] VITALS (103 sets, daily range): BP systolic 89–124; BP diastolic 28–50; PULSE 49–117; RESP 10–27; TEMP 95.9–98.8; O2SAT 94–100
[2024-06-16 03:47] LABS: Basophils # (auto) 0.1 10 ^3/uL (0-0.2); Basophils % (auto) 0.3 % (0.0-2.0); Eosinophils # (auto) 0 10 ^3/uL (0-0.8); Hematocrit 27.2 % (36.0-46.0); Hemoglobin 9.2 g/dL (12.2-16.2); Lymphocytes # (auto) 0.5 10 ^3/uL (0.4-5.4); Lymphocytes % (auto) 2.3 % (10.0-50.0); Mean Corpuscular Hemoglobin 30.6 pg (28.0-32.0); Mean Corpuscular Hgb Conc. 33.9 g/dL (32.0-36.0); Mean Corpuscular Volume 90.2 fL (80.0-100.0); Monocytes # (auto) 1.7 10 ^3/uL (0-1.3); Monocytes % (auto) 7.7 % (0.0-12.0); Neutrophils # (auto) 19.4 10 ^3/uL (1.6-8.6); Neutrophils % (auto) 89.7 % (37.0-80.0); Red Blood Cells 3.02 10^6/uL (4.0-5.20); Red Cell Distribution Width 16.2 % (11.8-14.3); White Blood Cell 21.7 10^3/uL (4.4-10.8)
[2024-06-16 04:05] LABS: Alanine Aminotransferase 10 U/L (7-40); Albumin 2.6 g/dL (3.2-4.8); Alkaline Phosphatase 115 U/L (46-116); Anion Gap 14 (5-15); Aspartate Aminotransferase 35 U/L (13-40); BUN/Creatinine Ratio 23.6 (10.0-20.0); Bilirubin, Total 0.2 mg/dL (0.2-1.0); Calcium 8.5 mg/dL (8.7-10.4); Carbon Dioxide 14 mmol/L (20-30); Chloride 97 mmol/L (98-107); Glucose 155 mg/dL (74-106); Phosphorus 8.9 mg/dL (2.4-5.1); Potassium 3.6 mmol/L (3.5-5.1); Sodium 125 mmol/L (136-145); Total Protein 5.1 g/dL (5.7-8.2)
[2024-06-16 04:24] LABS: Blood Urea Nitrogen 126 mg/dL (9-23)
[2024-06-16 08:17] LABS: Base Excess -14.5 mmol/L (-2.0-2.0)
[2024-06-16] MEDS: PIPERACILLIN-TAZOB 3.375GM 100 ML IV ONE (14:28)
[2024-06-16] MEDS: TPN PER PHARMACY IV NR (20:37)
[2024-06-16] MEDS: PIPERACILLIN-TAZOB 3.375GM 100 ML IV SCH (21:53)
[2024-06-17] VITALS (107 sets, daily range): BP systolic 70–130; BP diastolic 24–38; PULSE 66–98; RESP 11–28; TEMP 97.5–100.4; O2SAT 94–100
[2024-06-17] MEDS: PHENYLEPHRINE IV 250 ML IV SCH (02:40)
[2024-06-17 04:57] LABS: Hematocrit 27.6 % (36.0-46.0); Hemoglobin 9.1 g/dL (12.2-16.2); Mean Corpuscular Hemoglobin 30.8 pg (28.0-32.0); Mean Corpuscular Hgb Conc. 33.1 g/dL (32.0-36.0); Mean Corpuscular Volume 93.2 fL (80.0-100.0); Red Blood Cells 2.96 10^6/uL (4.0-5.20); Red Cell Distribution Width 16.1 % (11.8-14.3); White Blood Cell 25.7 10^3/uL (4.4-10.8)
[2024-06-17 05:02] LABS: Blast Cells 0; Metamyelocytes % 0; Myelocytes % 0; Promyelocytes % 0; Reactive Lymphocytes 0
[2024-06-17 06:05] LABS: Band Neutrophils % (manual) 11; Eosinophils % (manual) 2 (0-7); Monocytes % (manual) 7 (0-12)
[2024-06-17 06:06] LABS: Anisocytosis Slight; Basophils % (manual) 1 (0.0-2.0); Lymphocytes % (manual) 6 (10.0-50.0); Platelet Estimate Adequate
[2024-06-17 06:55] LABS: Base Excess -15.5 mmol/L (-2.0-2.0)
[2024-06-17 09:07] LABS: Alanine Aminotransferase 14 U/L (7-40); Albumin 2.3 g/dL (3.2-4.8); Alkaline Phosphatase 130 U/L (46-116); Anion Gap 18 (5-15); Aspartate Aminotransferase 44 U/L (13-40); BUN/Creatinine Ratio 21.6 (10.0-20.0); Bilirubin, Total 0.5 mg/dL (0.2-1.0); Carbon Dioxide 12 mmol/L (20-30); Chloride 94 mmol/L (98-107); Glucose 123 mg/dL (74-106); Magnesium 2.1 mg/dL (1.6-2.6); Phosphorus 8.2 mg/dL (2.4-5.1); Potassium 4.5 mmol/L (3.5-5.1); Sodium 124 mmol/L (136-145); Total Protein 4.7 g/dL (5.7-8.2)
[2024-06-17 09:23] LABS: Blood Urea Nitrogen 119 mg/dL (9-23)
[2024-06-17] MEDS: SODIUM BICARB 50mEq/50ml Vial 150 ML in D5W 5% 1,000 ML IV SCH (16:32)
[2024-06-17] MEDS ORDERED: TPN PER PHARMACY IV NR (20:00)
[2024-06-17] MEDS: ALBUMIN 5% 250 ML IV ONE (23:53)
[2024-06-18] VITALS: BP 88/35; PULSE 81; PULSE 82; RESP 20; TEMP 97.3; O2SAT 95
[2024-06-18 00:15] VITALS: BP 90/29; PULSE 81; RESP 19; O2SAT 95
[2024-06-18 00:30] VITALS: BP 89/36; PULSE 81; RESP 20; O2SAT 96
[2024-06-18 00:45] VITALS: BP 87/37; PULSE 80; RESP 20; O2SAT 96
[2024-06-18 01:00] VITALS: BP 88/37; PULSE 79; RESP 20; O2SAT 95
[2024-06-18] MEDS: ALBUMIN 5% 250 ML IV ONE (01:07)
[2024-06-18 01:15] VITALS: BP 93/39; PULSE 80; RESP 16; O2SAT 96
== END 2024-06-18 06:28 | DRG 207 ==
LOC: ER 02:09 → EDBD 02:09 → ICU WEST 10:51 → TELE 10:51 → ICU WEST 21:32
PROVIDERS: ADMIT Internal Medicine; ATTEND Internal Medicine
PROC: 5A1955Z Respiratory Ventilation, Greater than 96 Consecutive Hours (ICD-10-PCS; principal; 2024-05-29)
PROC: 0BH17EZ Insertion of Endotracheal Airway into Trachea, Via Natural or Artificial Opening (ICD-10-PCS; 2024-05-29)
PROC: 06HY33Z Insertion of Infusion Device into Lower Vein, Percutaneous Approach (ICD-10-PCS; 2024-05-29)
PROC: 5A12012 Performance of Cardiac Output, Single, Manual (ICD-10-PCS; 2024-05-29)
PROC: 30233N1 Transfusion of Nonautologous Red Blood Cells into Peripheral Vein, Percutaneous Approach (ICD-10-PCS; 2024-06-01)
PROC: 02HV33Z Insertion of Infusion Device into Superior Vena Cava, Percutaneous Approach (ICD-10-PCS; 2024-06-02)
PROC: B548ZZA Ultrasonography of Superior Vena Cava, Guidance (ICD-10-PCS; 2024-06-02)
DX: J96.01 Acute respiratory failure with hypoxia (principal); E43 Unspecified severe protein-calorie malnutrition; G92.8 Other toxic encephalopathy; I21.4 Non-ST elevation (NSTEMI) myocardial infarction; I50.43 Acute on chronic combined systolic (congestive) and diastolic (congestive) heart failure; J18.9 Pneumonia, unspecified organism; N17.0 Acute kidney failure with tubular necrosis; R40.20 Unspecified coma; E87.1 Hypo-osmolality and hyponatremia; J44.1 Chronic obstructive pulmonary disease with (acute) exacerbation; N30.00 Acute cystitis without hematuria; I13.0 Hypertensive heart and chronic kidney disease with heart failure and stage 1 through stage 4 chronic kidney disease, or unspecified chronic kidney disease; J44.0 Chronic obstructive pulmonary disease with (acute) lower respiratory infection; J98.11 Atelectasis; G93.1 Anoxic brain damage, not elsewhere classified; D62 Acute posthemorrhagic anemia; N18.4 Chronic kidney disease, stage 4 (severe); E87.21 Acute metabolic acidosis; K92.2 Gastrointestinal hemorrhage, unspecified; I46.9 Cardiac arrest, cause unspecified; T38.0X5A Adverse effect of glucocorticoids and synthetic analogues, initial encounter; T78.3XXA Angioneurotic edema, initial encounter; Z66 Do not resuscitate; T45.515A Adverse effect of anticoagulants, initial encounter; D63.1 Anemia in chronic kidney disease; I48.0 Paroxysmal atrial fibrillation; E88.09 Other disorders of plasma-protein metabolism, not elsewhere classified; E66.3 Overweight; E78.5 Hyperlipidemia, unspecified; F17.200 Nicotine dependence, unspecified, uncomplicated; I25.10 Atherosclerotic heart disease of native coronary artery without angina pectoris; Z79.02 Long term (current) use of antithrombotics/antiplatelets; Z95.5 Presence of coronary angioplasty implant and graft; Z68.28 Body mass index [BMI] 28.0-28.9, adult; Z79.899 Other long term (current) drug therapy
CPT/HCPCS: 31500; 36415; 36556; 36569; 36600; 70450; 70551; 71045; 76775; 76937; 80048; 80053; 80061; 80076; 80202; 81001; 82270; 82306; 82310; 82570; 82805; 82962; 83036; 83605; 83735; 83880; 83935; 83970; 84100; 84132; 84156; 84300; 84443; 84478; 84484; 85007; 85025; 85027; 85610; 85730; 86850; 86900; 86901; 86920; 87040; 87070; 87086; 87205; 93005; 93306; 93886; 94002; 94003; 95819; 96365; 96366; 96367; 96372; 99291; G0378; J0171; J1450; J1815; J2470; J2543; J2704; J3480; J3490; J7131